=== PATIENT | male | born 1980 | race Caucasian/White ===

== ENCOUNTER 2024-03-01 07:13 | Day surgery (SDC) | payer OTHER, SELFPAY ==
[2024-03-01 07:28] VITALS: BP 148/88; PULSE 82; RESP 17; TEMP 36.2; O2SAT 98
--- NOTE | 2024-03-01 08:05 | P.HP_ITS ---
History of Present Illness History of Present Illness Date Patient Seen: 03/01/24 Time Patient Seen: 08:05 Chief complaint: Colonoscopy Narrative: 43-year-old male here for colonoscopy. He reports that some years ago he had a stool test for blood through the and was routed for a colonoscopy. Numerous polyps were removed and he was recommended for a 3 year follow-up exam. I have not seen the colonoscopy report nor the histology. No known family hist ory of colon cancer or colon polyps but both of his parents fairly early in their 40s and 50s. FOR[facility]LY [facility] Medical History Anxiety (~2015) Shoulder pain (~2011) Fractures Ankle pain (~2013) Tinnitus (~2003) Hearing loss (~2003) Kidney stones (~2007) Hemorrhoid (~2007) Preventative health care Family history of type 2 diabetes mellitus Rash History of colon polyps (~2019) Surgical History Anesthesia History of ankle surgery (~04/2013) Family History Father Congestive heart failure Mental health problem Mother Cancer Brother Diabetes mellitus Grandfather Mental health problem Grandmother Brain bleed Diabetes mellitus Grandfather Esophageal cancer Grandmother Lung cancer Social History Smoking Status: Never smoker Meds Home Medications and Allergies Home Medications Medication Instructions Recorded Confirmed Type No Known Home Medications 10/28/23 10/28/23 History Allergies Allergy/AdvReac Type Severity Reaction Status Date / Time No Known Drug Allergies Allergy Unverified 10/28/23 09:10 Review of Systems Review of Systems ROS: Yes All systems reviewed with the patient and are negative except as otherwise documented Exam Vital Signs (past 8 hours): - 03/01/24 07:28 Temperature 97.2 F L Pulse Rate 82 Respiratory Rate 17 Blood Pressure 148/88 H Pulse Oximetry 98 Oxygen Delivery Method Room Air Oxygen Delivery Method Room Air Const General: cooperative HENMT Head: normal to inspection Eyes General: appearance normal, both eyes and all related structures Neck Neck: normal visual inspection Chest Chest: normal inspection of the chest Resp Effort & Inspection: normal respiratory effort Cardio Rate: regular rate GI Inspection: normal to inspection Skin General: no rashes or lesions noted Neuro General: patient alert and patient awake Extrem General: normal to inspection and no pedal edema Psych Appearance: grossly normal Assessment & Plan Assessment & Plan narrative: 43-year-old male with a personal history of colon polyps. Surveillance colonoscopy is pursued today. Time-Based Coding :: [TOTAL MINUTES] spent with patient and on the chart (including review of chart, obtaining history, exam, reviewing outside data, placing orders, documenting exa m and treatment plan, and counseling patient) on [DATE].
--- NOTE | 2024-03-01 08:07 | PM.PREOP ---
Pre-operative Note Interval Note History & Physical reviewed/Exam performed by Physician: Yes Changes to H&P: No ASA Class (for procedural sedation): II
--- NOTE | 2024-03-01 09:20 | P.OP.COLON_ITS ---
Operative Date/Time/Diagnoses Date of procedure: 03/01/24 Time of procedure: 09:20 Pre-op diagnosis: Personal history of colon polyps Post-op diagnosis: same Procedure & Clinicians Study performed: Colonoscopy Same procedure as scheduled: Yes Indications: Personal history of colon polyps Surgeon: Casey Sainz Procedure Notes SCOAP/Timeout: Done Procedure in detail: After the risks and benefits were explained, written and verbal informed consent was obtained. The patient was brought into the procedure room and placed into the left lateral decubitus position. Please see anesthesia note for sedation details. Digital rectal examination was accomplished. The scope was introduced into the patient and advanced under direct visualization to the cecum as identified by the appendiceal orifice and ileocecal valve. The scope was slowly withdrawn to carefully examine the mucosa for any defects or lesions. Comprehensive imaging was accomplished throughout the rectum including the dentate line. The colon was decompressed, the scope was then removed from the patient who tolerated the procedure well. Adult colonoscope Bowel prep adequate Scope withdrawal time: 11 minutes Sedation minutes: 17 Specimen(s): none sent Complications: none Impression: There was no evidence of any procto colitis throughout. The terminal ileum was interrogated and was within normal limits. I did not appreciate any significant polyps throughout the entire exam. Endoscopic diagnosis Visually normal colonoscopy Post-procedure Plan for aftercare: 1. Prior colonoscopy and pathology results should be imported into [facility] for further review. 2. Contingent on the endoscopic/histologic findings from that exam the timing of future surveillance colonoscopy can be then recommended. Disposition: PACU
[2024-03-01 09:22] VITALS: BP 136/85; PULSE 81; RESP 10; TEMP 36.4; O2SAT 96
[2024-03-01 09:27] VITALS: BP 126/87; PULSE 79; RESP 12; O2SAT 96
[2024-03-01 09:35] VITALS: BP 123/92; PULSE 79; RESP 17; O2SAT 94
[2024-03-01 09:47] VITALS: BP 128/87; PULSE 72; RESP 12; TEMP 36.6; O2SAT 95
== END 2024-03-01 09:50 | disposition home or self-care (01) ==
PROVIDERS: PCP Family Medicine; Referring Provider Internal Medicine Gastroenterology; Visit Provider Internal Medicine Gastroenterology
PROC: 0DJD8ZZ Inspection of Lower Intestinal Tract, Via Natural or Artificial Opening Endoscopic (ICD-10-PCS; CPT 45378; principal; 2024-03-01 08:30)
DX: Z12.11 Encounter for screening for malignant neoplasm of colon (principal); Z86.0100 Personal history of colon polyps, unspecified
CPT/HCPCS: 45378; J2704

== ENCOUNTER 2024-11-16 18:16 | Emergency (ER) | payer OTHER, SELFPAY ==
[2024-11-16] VITALS (8 sets, daily range): BP systolic 117–136; BP diastolic 63–85; PULSE 58–79; RESP 14; TEMP 36.1; O2SAT 91–97; BMI 33.9
--- NOTE | 2024-11-16 18:33 | DI.CT.S_ITS ---
PROCEDURE: CT ANGIO HEAD AND NECK INDICATIONS: trouble speaking 0700,pt sx free now TECHNIQUE: After the administration of intravenous contrast, 1 mm thick sections acquired from the aortic arch through the [place] of [place]. 3-dimensional itqzvai-sqrbyjxee-qaaujcodmu (MIP) and/or volume rendering reformats were acquired of the central intracranial vasculature and neck separately. For radiation dose reduction, the following was used: automated exposure control, adjustment of mA and/or kV according to patient size. COMPARISON: CT noncontrast head 11/16/2024. FINDINGS: Image quality: Diagnostic. Cerebral CT Angiogram: Internal carotid arteries: No acute findings. Intracranial ICA are patent with no significant stenosis. No occlusion. No aneurysm. Anterior cerebral arteries: Unremarkable. No significant stenosis. No occlusion. No aneurysm. Middle cerebral arteries: Unremarkable. No significant stenosis. No occlusion. No aneurysm. Posterior cerebral arteries: Unremarkable. No significant stenosis. No occlusion. No aneurysm. Basilar artery: Unremarkable. No significant stenosis. No occlusion. No aneurysm. Vertebral arteries: Unremarkable as visualized. Dural venous sinuses: Unremarkable given phase of enhancement. Other: Arterial phase appearance of the brain parenchyma is unremarkable. Neck CT Angiogram: Internal carotid arteries: Unremarkable. No significant stenosis. No dissection or occlusion. Common carotid arteries: Unremarkable. No significant stenosis. No dissection or occlusion. External carotid arteries: Unremarkable. No occlusion. Vertebral arteries: Unremarkable. No significant stenosis. No dissection or occlusion. Aortic Arch and Mediastinum: Partially visualized aortic arch unremarkable without evidence of aneurysm. Origins of the great vessels unremarkable. Other: Arterial phase soft tissues of the neck and chest are unremarkable. IMPRESSION: No significant intracranial arterial abnormality is seen. No significant abnormality is seen within the arteries of the neck. Any quantitative measurements of stenosis were performed using NASCET criteria. Approved by: Meme Collazo M.D.,Ph.D. on 11/16/2024 at 19:36
--- NOTE | 2024-11-16 18:33 | DI.CT.S_ITS ---
PROCEDURE: CT STROKE INDICATIONS: Positive BE-FAST, Stroke symptoms TECHNIQUE: Noncontrast 4.5 mm thick angled axial sections acquired from the foramen magnum to the vertex, with coronal reformats. For radiation dose reduction, the following was used: automated exposure control, adjustment of mA and/or kV according to patient size. COMPARISON: None. FINDINGS: Image quality: Diagnostic. CSF spaces: Basal cisterns are patent. No extra-axial fluid collections. Ventricles are normal in size and shape. Brain: No midline shift. No intracranial mass effect or hemorrhage. Barger- white matter interface is normal. Skull and face: Calvarium and visualized facial bones are intact, without suspicious lesions. Sinuses: Visualized sinuses and mastoids are clear. IMPRESSION: No acute intracranial pathology. Findings were discussed with ordering ED provider Dr. Hicks by Dr. Collazo at 7:00 p.m. On 11/16/2024 This study fulfills neurological imaging criteria for inclusion or exclusion of acute stroke therapies based on available published neurological imaging guidelines. Approved by: Meme Collazo M.D.,Ph.D. on 11/16/2024 at 19:02
--- NOTE | 2024-11-16 18:33 | DI.RAD.S_ITS ---
PROCEDURE: XR CHEST 1V INDICATIONS: Possible stroke TECHNIQUE: One view of the chest was acquired. COMPARISON: None. FINDINGS: Surgical changes and devices: None. Lungs and pleura: Lungs are clear. No pleural effusions or pneumothorax. Mediastinum: Mediastinal contours appear normal. Heart size is normal. Bones and chest wall: No suspicious bony lesions. Overlying soft tissues appear unremarkable. IMPRESSION: No acute cardiopulmonary abnormality is seen. Approved by: Meme Collazo M.D.,Ph.D. on 11/16/2024 at 19:34
--- NOTE | 2024-11-16 18:38 | EKG_ITS ---
[address] [address] Test Date: 2024-11-16 Pat Name: Justin Sanford Department: Room: Gender: Male [employer] Consultant: KLAUS : 1980 Requested By: Order Number: [id number] Reading MD: Won Chamberlain Measurements Intervals [place] Rate: 74 P: 24 [place]: 152 QRS: 41 QRSD: 82 T: 34 QT: 374 QTc: 415 Interpretive Statements Normal sinus rhythm Electronically Signed On 11-17-2024 7:24:31 PDT by Won Chamberlain
[2024-11-16 19:25] LABS: Alanine Aminotransferase 50 IU/L (<50); Albumin 4.6 g/dL (3.5-5.0); Albumin Globulin Ratio 1.4 (1.0-2.8); Alkaline Phosphatase 44 U/L (38-126); Blood Urea Nitrogen 14 mg/dL (9-20); Calcium 9.4 mg/dL (8.4-10.2); Carbon Dioxide 23 mmol/L (22-32); Chloride 104 mmol/L (98-107); Creatine Kinase 58 U/L (55-170); Estimated Glomerular Filt Rate > 60 mL/min (>60); Globulin 3.4 g/dL (1.7-4.1); Glucose 81 mg/dL (70-99); HEMOLYSIS < 15 (0-50); Potassium 3.9 mmol/L (3.4-5.1); Sodium 139 mmol/L (137-145); Total Protein 8.0 g/dL (6.3-8.2)
[2024-11-16 19:34] LABS: Add Manual Diff / Slide Review NO; Hematocrit 44.5 % (41-53); Hemoglobin 15.4 g/dL (13.5-17.5); Lymphocytes Absolute Auto 2700 /uL (1100-4500); Mean Corpuscular HGB Conc 34.7 % (30-36); Mean Corpuscular Hemoglobin 32.5 PG (26-34); Mean Corpuscular Volume 93.5 fL (80-100); Platelet Count 277 X10^3/uL (150-400)
[2024-11-16 19:37] LABS: Troponin I < 0.012 ng/mL (0.01-0.034)
--- NOTE | 2024-11-16 23:30 | ED.NEUROSD ---
HPI - Neuro Symptoms/Deficit General Chief Complaint: Neuro Symptoms/Deficit Stated Complaint: Poss Stroke, slurred speech, weakness in lt side Time Seen by Provider: 11/16/24 18:54 Source: patient Mode of arrival: Ambulatory History of Present Illness HPI Narrative: 44-year-old gentleman woke up this morning at 7:00 a.m. went to the bathroom had a bowel movement washed up and then dumped some clothes on the bed as he was looking for a particular clothing item when he started to have difficulty speaking and had bilateral upper extremity numbness and tingling that lasted for approximately 30 seconds and then resolved on its own. This has never happened to him before and he denies any headache, dizziness, blurred vision, neck stiffness, rash, chest pain, shortness of breath, cough, runny nose, sore throat, nausea, vomiting, diarrhea, or any recent migraine attack. Other than what is stated 14 point review of system is negative. On Anticoagulants: No Related Data Home Medications ?Medication ?Instructions ?Recorded ?Confirmed No Known Home Medications 10/28/23 10/28/23 Allergies Allergy/AdvReac Type Severity Reaction Status Date / Time No Known Drug Allergies Allergy Unverified 11/16/24 18:25 Review of Systems Review of Systems ROS Unobtainable: All systems reviewed & are unremarkable except as noted in HPI and below Hematologic/Lymphatic On Anticoagulants: No Patient History Medical History Anxiety (~2015) Shoulder pain (~2011) Fractures Ankle pain (~2013) Tinnitus (~2003) Hearing loss (~2003) Kidney stones (~2007) Hemorrhoid (~2007) Preventative health care Family history of type 2 diabetes mellitus Rash History of colon polyps (~2019) Surgical History Anesthesia History of ankle surgery (~04/2013) Family History Father Congestive heart failure Mental health problem Mother Cancer Brother Diabetes mellitus Grandfather Mental health problem Grandmother Brain bleed Diabetes mellitus Grandfather Esophageal cancer Grandmother Lung cancer Smoking Status: Unknown if ever smoked Exam Narrative Exam Narrative: GENERAL: [44] year old patient appears stated age. Well-developed patient, in mild distress. HEAD: Atraumatic. Normocephalic. EYES: Pupils equal round and reactive. Extraocular motions intact. No scleral icterus. No injection or drainage. ENT: Nose without bleeding, purulent drainage. Throat without erythema, tonsillar hypertrophy or exudate. Airway patent. NECK: Trachea midline. Non tender CARDIOVASCULAR: Regular rate and rhythm without murmurs, gallops, or rubs. RESPIRATORY: Clear to auscultation. Breath sounds equal bilaterally. No wheezes, rales, or rhonchi. GASTROINTESTINAL: Abdomen soft, non-tender, nondistended. EXTREMITIES: No edema or joint tenderness. BACK: Nontender without deformity or crepitance. No flank tenderness. NEURO: AOx3. GCS of 15 nonfocal neuro exam negative Romberg eeonuy-jv-snpc opposite exrh-fw-egqx all intact 5/5 upper and lower extremity SKIN: No rash or erythema of visible areas Initial Vital Signs Initial Vital Signs: Vital Signs Temperature 97 F L 11/16/24 18:25 Pulse Rate 74 11/16/24 18:25 Respiratory Rate 14 11/16/24 18:25 Blood Pressure 121/64 11/16/24 18:25 Pulse Oximetry 95 11/16/24 18:25 Oxygen Delivery Method Room Air 11/16/24 18:25 Scores NIH Stroke Scale Level of Conciousness: Alert, keenly responsive Ask month/age: Answers both questions correctly. Open/close eyes, close hand: Performs both tasks correctly Best gaze horizontal: Normal Visual stover: No visual loss Facial palsy: Normal symetrical movement Left arm drift: No drift for full 10 sec Right arm drift: No drift for full 10 sec Left leg drift: No drift for full 5 sec Right leg drift: No drift for full 5 sec Limb ataxia: Absent Sensory on face/arms/legs: Normal, no sensory loss Best language: No aphasia, normal Dysarthria: Normal Extinction or inattention: No abnormality Total NIH Stroke scale score: 0 Course Orders Ordered: ED Orders 11/16/24 18:[address] angio head and neck Stat XR chest 1V Stat EKG-12 Lead Stat 11/16/24 18:40 Complete Blood Count AUTO DIFF Stat Comprehensive Metabolic Panel Stat Troponin & CK Cardiac Panel Stat Ondansetron HCl (Ondansetron 4 Mg/2 Ml Inj) 4 mg IV NOW PRN PRN Reason: Nausea And Vomiting Ondansetron HCl (Ondansetron 4 Mg Odt) 4 mg PO NOW PRN PRN Reason: Nausea And Vomiting Vital Signs Vital signs: Vital Signs - 8 hr 11/16/24 18:25 11/16/24 20:59 11/16/24 20:59 Temperature 97 F L Pulse Rate 74 67 Respiratory Rate 14 Blood Pressure 121/64 122/81 Pulse Oximetry 95 97 Oxygen Delivery Method Room Air 11/16/24 21:00 11/16/24 21:00 Temperature Pulse Rate 63 Respiratory Rate Blood Pressure 119/79 Pulse Oximetry 96 Oxygen Delivery Method MDM - Neuro Symptoms/Deficit Lab Data 11/16/24 18:40 11/16/24 18:40 Labs: Lab Results 11/16/24 11/16/24 Range/Units 18:33 18:40 WBC 7.5 (4.5-11.0) X10^3/uL RBC 4.76 (4.5-5.9) X10^6/uL Hgb 15.4 (13.5-17.5) g/dL Hct 44.5 (41-53) % MCV 93.5 (80-100) fL MCH 32.5 (26-34) PG MCHC 34.7 (30-36) % RDW 13.3 (11.6-14.8) % Plt Count 277 (150-400) X10^3/uL Neut % (Auto) 47.7 L (50-75) % Lymph % (Auto) 36.0 (25-40) % [place] % (Auto) 11.6 (3-14) % Eos % (Auto) 3.3 (2-4) % Baso % (Auto) 1.4 (0-2) % Neut # (Auto) 3600 (4318-9499) /uL Lymph # (Auto) 2700 (0284-4327) /uL [place] # (Auto) 900 (0-900) /uL Eos # (Auto) 300 (0-450) /uL Baso # (Auto) 100 (0-100) /uL Sodium 139 (137-145) mmol/L Potassium 3.9 (3.4-5.1) mmol/L Chloride 104 (98-107) mmol/L Carbon Dioxide 23 (22-32) mmol/L BUN 14 (9-20) mg/dL Creatinine 0.75 (0.66-1.25) mg/dL Estimated GFR > 60 (>60) mL/min BUN/Creatinine Ratio 18.7 (6-22) Glucose 81 (70-99) mg/dL POC Whole Bld Glucose 74 (70-99) mg/dL Calcium 9.4 (8.4-10.2) mg/dL Total Bilirubin 0.6 (0.2-1.3) mg/dL AST 42 (17-59) IU/L ALT 50 H (<50) IU/L Alkaline Phosphatase 44 (38-126) U/L Total Creatine Kinase 58 (55-170) U/L Troponin I < 0.012 (0.01-0.034) ng/mL Total Protein 8.0 (6.3-8.2) g/dL Albumin 4.6 (3.5-5.0) g/dL Globulin 3.4 (1.7-4.1) g/dL Albumin/Globulin Ratio 1.4 (1.0-2.8) Imaging Data CT scan - head: Radiologist's Impression: [place] [address] CT Scan Report Signed Patient: Justin Sanford MR#: [id number] : 1980 Acct:[id number] Age/Sex: 44 / M Date of Service: 11/16/24 Loc: ED Accession Number: [id number] Procedure: CT Stroke Ordering Provider: Linda Hicks MD PROCEDURE: CT STROKE INDICATIONS: Positive BE-FAST, Stroke symptoms TECHNIQUE: Noncontrast 4.5 mm thick angled axial sections acquired from the foramen magnum to the vertex, with coronal reformats. For radiation dose reduction, the following was used: automated exposure control, adjustment of mA and/or kV according to patient size. COMPARISON: None. FINDINGS: Image quality: Diagnostic. CSF spaces: Basal cisterns are patent. No extra-axial fluid collections. Ventricles are normal in size and shape. Brain: No midline shift. No intracranial mass effect or hemorrhage. Barger-white matter interface is normal. Skull and face: Calvarium and visualized facial bones are intact, without suspicious lesions. Sinuses: Visualized sinuses and mastoids are clear. IMPRESSION: No acute intracranial pathology. Findings were discussed with ordering ED provider Dr. Hicks by Dr. Collazo at 7:00 p.m. On 11/16/2024 This study fulfills neurological imaging criteria for inclusion or exclusion of acute stroke therapies based on available published neurological imaging guidelines. CTA - brain/neck: Radiologist's Impression: [address] [address] [address] Scan Report Signed Patient: Justin Sanford MR#: [id number] : 1980 Acct:[id number] Age/Sex: 44 / M Date of Service: 11/16/24 Loc: ED Accession Number: [id number] Procedure: CT angio head and neck Ordering Provider: Linda Hicks MD PROCEDURE: CT ANGIO HEAD AND NECK INDICATIONS: trouble speaking 0700,pt sx free now TECHNIQUE: After the administration of intravenous contrast, 1 mm thick sections acquired from the aortic arch through the [place] of [place]. 3-dimensional pcckmlz-npbmznanz-umyveviuap (MIP) and/or volume rendering reformats were acquired of the central intracranial vasculature and neck separately. For radiation dose reduction, the following was used: automated exposure control, adjustment of mA and/or kV according to patient size. COMPARISON: CT noncontrast head 11/16/2024. FINDINGS: Image quality: Diagnostic. Cerebral CT Angiogram: Internal carotid arteries: No acute findings. Intracranial ICA are patent with no significant stenosis. No occlusion. No aneurysm. Anterior cerebral arteries: Unremarkable. No significant stenosis. No occlusion. No aneurysm. Middle cerebral arteries: Unremarkable. No significant stenosis. No occlusion. No aneurysm. Posterior cerebral arteries: Unremarkable. No significant stenosis. No occlusion. No aneurysm. Basilar artery: Unremarkable. No significant stenosis. No occlusion. No aneurysm. Vertebral arteries: Unremarkable as visualized. Dural venous sinuses: Unremarkable given phase of enhancement. Other: Arterial phase appearance of the brain parenchyma is unremarkable. Neck CT Angiogram: Internal carotid arteries: Unremarkable. No significant stenosis. No dissection or occlusion. Common carotid arteries: Unremarkable. No significant stenosis. No dissection or occlusion. External carotid arteries: Unremarkable. No occlusion. Vertebral arteries: Unremarkable. No significant stenosis. No dissection or occlusion. Aortic Arch and Mediastinum: Partially visualized aortic arch unremarkable without evidence of aneurysm. Origins of the great vessels unremarkable. Other: Arterial phase soft tissues of the neck and chest are unremarkable. IMPRESSION: No significant intracranial arterial abnormality is seen. No significant abnormality is seen within the arteries of the neck. Any quantitative measurements of stenosis were performed using NASCET criteria. Chest x-ray: Radiologist's Impression: [address] [address] XRay Report Signed Patient: Justin Sanford MR#: [id number] : 1980 Acct:[id number] Age/Sex: 44 / M Date of Service: 11/16/24 Loc: ED Accession Number: [id number] Procedure: XR chest 1V Ordering Provider: Linda Hicks MD PROCEDURE: XR CHEST 1V INDICATIONS: Possible stroke TECHNIQUE: One view of the chest was acquired. COMPARISON: None. FINDINGS: Surgical changes and devices: None. Lungs and pleura: Lungs are clear. No pleural effusions or pneumothorax. Mediastinum: Mediastinal contours appear normal. Heart size is normal. Bones and chest wall: No suspicious bony lesions. Overlying soft tissues appear unremarkable. IMPRESSION: No acute cardiopulmonary abnormality is seen. ECG Data Interpretation: NSR HR 74 [place] 152 QRS [address]-t wave change NO previous EKG to compare MDM Narrative Medical decision making narrative: Vital signs, nurse triage note, medication list, previous ER visits, and all imaging studies reviewed. CT head and neck and CT head and chest x-ray all showed no acute process. CBC CMP troponin were all normal. EKG showed normal sinus rhythm. Patient alert and oriented x4 GCS 15 nonfocal neuro exam. Differential diagnosis includes CVA TIA brain hemorrhage seizure hypoglycemia dehydration orthostatic hypotension. [place] Discharge Plan Departure Patient Disposition: Home Clinical Impression: Altered awareness, transient Instructions: DI for Altered Mental Status, DI for Transient Global Amnesia Activity Restrictions/Additional Instructions: Return with new or worsening symptoms. Keep hydrated. Follow up PCP this week for follow up care. Prescriptions: No Action No Known Home Medications Referrals: Cory Mora DO [Primary Care Provider, Family Practice] Stand Alone Forms: Patient Portal/API
== END 2024-11-17 00:10 | disposition home or self-care (01) ==
PROVIDERS: Emergency Medicine; Emergency Provider Family Medicine; PCP Family Medicine
DX: R40.4 Transient alteration of awareness (principal); R29.700 NIHSS score 0
CPT/HCPCS: 36415; 70450; 70496; 70498; 71045; 80053; 82550; 82962; 84484; 85025; 93005; 99283; 99284; Q9967